=== PATIENT | female | born 1990 ===

== ENCOUNTER 2019-09-20 04:36 | Day surgery (SDC) | payer OTHER ==
[2019-09-19 14:17] VITALS: BMI 18.0
[2019-09-20] MEDS ORDERED: LIDOCAINE HCL/PF 1% SDV 5ML VIAL ONE (07:21)
[2019-09-20] MEDS ORDERED: DEXAMETHASONE SOD PHOSPHATE/PF 10 MG/ML SDV ONE (07:21)
[2019-09-20] MEDS ORDERED: BUPIVACAINE HCL/PF 0.25% (2.5MG/ML) 10 ML VIAL ONE (09:58)
[2019-09-20] MEDS ORDERED: LIDOCAINE HCL 1%, 10 MG/ML (20ML VIAL) ONE (10:23)
[2019-09-20] MEDS ORDERED: LIDOCAINE HCL 1%, 10 MG/ML (50 mL VIAL) INF ONE (10:33)
[2019-09-20] MEDS ORDERED: BUPIVACAINE HCL/PF 0.25% (2.5MG/ML) 10 ML VIAL IJ ONE (10:33)
[2019-09-20] MEDS ORDERED: IOHEXOL 180 MG/1 ML ML IJ ONE (10:34)
[2019-09-20 11:46] VITALS: BP 115/76; PULSE 71; TEMP 98
--- NOTE | 2019-10-02 13:00 | PROC ---
Procedure Note Procedure: Date of Service 09/20/19 Preprocedure Diagnosis: Left Hip Pain Post Procedure Diagnosis: Same Anesthesia: Local Procedure Performed: Left Hip Intrarticular Injection with Local Anasthetic After the risks and benefits were explained, informed consent was obtained. The patient was then taken to the procedure room and positioned supine on the procedure table. Time out was performed. The region overlying the Left hip joint was identified using fluoroscopy. The skin was prepped and draped in the usual sterile fashion. The skin and soft tissues were anesthetized using 1% lidocaine. Using fluoroscopic guidance, a 22 gauge 3.5 inch spinal needle was then introduced to the hip joint at the center of the junction of the femoral neck. Omnipaque 180 confirmed appropriate needle placement. Next 7 cc of .25% bupivacaine was then injected. The patient tolerated the procedure well and there were no complications. The patient was taken to the post procedure recovery area in good condition. Vital signs remained stable before, during, and after the procedure. The patient was given oral and written follow-up instructions. The patient was given a follow up appointment with me in the near future. Jose Amor DO
== END 2019-09-20 11:45 | disposition home or self-care (01) ==
LOC: JASU-SURG 04:36
PROVIDERS: ATTEND Pain Medicine Pain Medicine
PROC: BQ11YZZ Fluoroscopy of Left Hip using Other Contrast (ICD-10-PCS; 2019-09-20)
PROC: 3E0U3BZ Introduction of Anesthetic Agent into Joints, Percutaneous Approach (ICD-10-PCS; principal; 2019-09-20 10:00)
DX: M25.552 Pain in left hip (principal)
CPT/HCPCS: 76000-TC-FY; 84703

== ENCOUNTER 2019-12-06 04:55 | Day surgery (SDC) | payer OTHER ==
--- OUTSIDE RECORDS SUMMARY | 2019-11-19 07:47 | XMS ---
:1990 Author Organization [facility] Care Team Providers Name Role Phone Jose Amor Unavailable Jose Amor Unavailable Re-disclosure Warning The records that you are about to access may contain information from federally- assisted alcohol or drug abuse programs. If such information is present, then the following federally mandated warning applies: This information has been disclosed to you from records protected by federal confidentiality rules (42 CFR part 2). The federal rules prohibit you from making any further disclosure of this information unless further disclosure is expressly permitted by the written consent of the person to whom it pertains or as otherwise permitted by 42 CFR part 2. A general authorization for the release of medical or other information is NOT sufficient for this purpose. The Federal rules restrict any use of the information to criminally investigate or prosecute any alcohol or drug abuse patient.The records that you are about to access may contain highly sensitive health information, the redisclosure of which is protected by Article 27-F of the [facility] Public Health law. If you continue you may haveaccess to information: Regarding HIV / AIDS; Provided by facilities licensed or operated by the [facility] Office of Mental Health; or Provided by the [facility] Office for People With Developmental Disabilities. If such information is present, then the following [facility] mandated warning applies: This information has been disclosed to you from confidential records which are protected by state law. State law prohibits you from making any further disclosure of this information without the specific written consent of the person to whom it pertains, or as otherwise permitted by law. Any unauthorized further disclosure in violation of state law may result in a fine or detention sentence or both. A general authorization for the release of medical or other information is NOT sufficient authorization for further disclosure. Encounters Encounter Providers Location Date Indications Data Source(s ) Attender: Jose 11/14/2019 [facility] ([facility] 12:00:00 AM EDT Medical, ) Office Attender: Jose Amor 11/14/2019 12:00:00 AM EDT [facility] ([facility], ) Office Attender: Jose Amor 11/14/2019 12:00:00 AM EDT MED[facility] ([facility], ) Office Attender: Jose Amor 10/23/2019 12:00:00 AM EDT MED[facility] ([facility], ) Office Attender: Jose Amor 10/23/2019 12:00:00 AM EDT MED[facility] ([facility], ) Office Attender: Jose Amor 10/23/2019 12:00:00 AM EDT MED[facility] ([facility], ) Office Attender: Jose Amor 09/26/2019 12:00:00 AM EDT MED[facility] ([facility], ) Office Attender: Jose Amor 09/26/2019 12:00:00 AM EDT MED[facility] ([facility], ) Office Attender: Jose Amor 09/26/2019 12:00:00 AM EDT MED[facility] ([facility], ) Office Medications Medication Brand Start Product Dose Route Administrative Pharmacy [facility] Indications Reaction Description Data Name Date Form Instructions Instructions Source(s) CREAM 09/24/ CREAM 1 complet CREAM BASE ME DGEN (St BASE:[id number] ed [facility] 12:00: Medical, 00 AM PC) EDT CREAM 09/24/ CREAM 1 complet CREAM BASE ME DGEN (St BASE:[id number] [facility] 12:00: Medical, 00 AM PC) EDT CREAM 09/24/ CREAM 1 complet CREAM BASE ME DGEN (St BASE:[id number] ed [facility] 12:00: Medical, 00 AM PC) EDT Diclofenac DICLOF 09/10/ GEL 1 complet DICLOFE NAC MEDGEN (St Sodium 0.01 ENAC 2019 ed [facility]ICAL [facility] 12:00: Medical, Topical Gel L:8556 00 AM ) DICLOFENAC 33 EDT TOPICAL:[phone] Diclofenac DICLOF 09/10/ GEL 1 complet DICLOFE NAC MEDGEN (St Sodium 0.01 2019 ed TOPICAL [facility] 12:00: Medical, Topical Gel L:8556 00 AM PC) DICLOFENAC 33 EDT TOPICAL:855 633 Diclofenac DICLOF 09/10/ GEL 1 complet DICLOFE NAC MEDGEN (St Sodium 0.01 2019 ed TOPICAL [facility] 12:00: Medical, Topical Gel L:8556 00 AM ) DICLOFENAC 33 EDT TOPICAL:[phone] Insurance Providers Payer name Policy type Policy ID Covered Covered constitution party's Policy P nahun / Coverage constitution party ID relationship to Horner Inf ormation type horner RENE [id number] [id number] [facility] [facility] [id number] SP [id number] HEALTH NON CAP [facility] [id number] SP [id number] HEALTH NON CAP Problems, Conditions, and Diagnoses Code Display Name Description Problem Type Effective Data Dates Source(s) M54.16 Radiculopathy, RADICULOPATHY, Problem 09/11/2019 MEDGEN (St lumbar region LUMBAR REGION 12:00:00 AM [facility], ) M53.3 Sacrococcygeal SACROCOCCYGEAL Problem 09/11/2019 MEDGEN (St disorders, not DISORDERS, NOT 12:00:00 AM [facility] elsewhere [facility] Medical, ) classified CLASSIFIED M25.552 Pain in left hip PAIN IN LEFT HIP Problem 09/11/2019 ME DGEN (St 12:00:00 AM [facility], ) M54.16 Radiculopathy, RADICULOPATHY, Problem 09/11/2019 MEDGEN (St lumbar region LUMBAR REGION 12:00:00 AM [facility], ) M53.3 Sacrococcygeal SACROCOCCYGEAL Problem 09/11/2019 MEDGEN (St disorders, not DISORDERS, NOT 12:00:00 AM [facility] elsewhere [facility] Medical, ) classified CLASSIFIED M25.552 Pain in left hip PAIN IN LEFT HIP Problem 09/11/2019 ME DGEN (St 12:00:00 AM [facility], ) M54.16 Radiculopathy, RADICULOPATHY, Problem 09/11/2019 MEDGEN (St lumbar region LUMBAR REGION 12:00:00 AM [facility], ) M53.3 Sacrococcygeal SACROCOCCYGEAL Problem 09/11/2019 MEDGEN (St disorders, not DISORDERS, NOT 12:00:00 AM [facility] s elsewhere ELSEWHERE [facility], ) classified CLASSIFIED M25.552 Pain in left hip PAIN IN LEFT HIP Problem 09/11/2019 ME DGEN (St 12:00:00 AM [facility], ) Surgeries/Procedures Procedure Description Date Indications Data Source(s) Documentation of current 11/14/2019 MED GEN ([facility]procedure) 12:00:00 AM EDT [facility]in, ) Documentation of current 11/14/2019 MED [facility] ([facility] (procedure) 12:00:00 AM T [facility], ) OFFICE OUTPATIENT VISIT 11/14/2019 MEDG EN ([facility] 15 MINUTES 12:00:00 AM [facility], ) OFFICE OUTPATIENT VISIT 10/23/2019 MEDG EN ([facility] 15 MINUTES 12:00:00 AM [facility], ) OFFICE OUTPATIENT VISIT 10/23/2019 MEDG EN ([facility] 15 MINUTES 12:00:00 AM [facility], ) Documentation of current 09/26/2019 MED GEN ([facility] (procedure) 12:00:00 AM EDT devin, ) Documentation of current 09/26/2019 MED [facility] ([facility] (procedure) 12:00:00 AM EDT devin, ) Documentation of current 09/26/2019 MED [facility] ([facility] (procedure) 12:00:00 AM EDT devin, ) OFFICE OUTPATIENT VISIT 09/26/2019 MEDG EN ([facility] 25 MINUTES 12:00:00 AM [facility], ) Documentation of current 09/26/2019 MED GEN ([facility] (procedure) 12:00:00 AM EDT devin, ) Documentation of current 09/26/2019 MED [facility] ([facility] (procedure) 12:00:00 AM EDT devin, ) OFFICE OUTPATIENT VISIT 09/26/2019 [facility] Documentation of current 09/26/2019 MED GEN ([facility] (procedure) 12:00:00 AM EDT edical, ) OFFICE OUTPATIENT VISIT 09/26/2019 [facility] Documentation of current 09/11/2019 MED [facility] ([facility] (procedure) 12:00:00 AM EDT edical, ) Documentation of current 09/11/2019 MED [facility] ([facility] (procedure) 12:00:00 AM EDT edical, ) Documentation of current 09/11/2019 MED [facility] ([facility] (procedure) 12:00:00 AM EDT edical, ) Documentation of current 09/11/2019 MED [facility] ([facility] (procedure) 12:00:00 AM EDT edical, ) Documentation of current 09/11/2019 [facility]ation of current 09/11/2019 MED GEN ([facility] (procedure) 12:00:00 AM EDT edical, ) Documentation of current 09/11/2019 MED GEN ([facility] (procedure) 12:00:00 AM EDT edical, ) Documentation of current 09/11/2019 MED [facility] ([facility]) [facility] Results ID Date Data Source [id number] 11/07/2019 01:44:00 PM EDT [facility] Name Value Range Interpretation Code Description Data Kiya rce(s) Supporting Document(s ) SARS-COV-2 [facility] RNA RESP Diagnostics QL STEPHANY+PROBE This lab was ordered by [facility] and rep orted by [employer] JOSE. ID Date Data Source [id number] 09/15/2019 09:19:00 AM EDT [facility] Name Value Range Interpretation Description Data Sup porting Code Source(s) Document(s ) SARS [facility] coronavirus 2 RNA This lab was ordered by [facility] and reported by [facility]. Procedure Social History Code Duration Value Status Description Data Source(s ) Smoking 11/14/2019 - No alcohol - completed - No alcohol - No M EDGEN ([facility] 12:00:00 AM EDT No smoking smoking Denies [facility], ) Denies illicit illicit drugs drugs Smoking 11/14/2019 Unknown if ever completed Unknown if ever MEDG EN ([facility] 12:00:00 AM EDT smoked smoked Medical, ) Smoking 10/23/2019 - No alcohol - completed - No alcohol - No M EDGEN ([facility] 12:00:00 AM EDT No smoking smoking Denies [facility], ) Denies illicit illicit drugs drugs Smoking 10/23/2019 Unknown if ever completed Unknown if ever MEDG EN ([facility] 12:00:00 AM EDT smoked smoked Medical, ) Smoking 09/26/2019 - No alcohol - completed - No alcohol - No M EDGEN ([facility] 12:00:00 AM EDT No smoking smoking Denies [facility], ) Denies illicit illicit drugs drugs Smoking 09/26/2019 Unknown if ever completed Unknown if ever MEDG EN ([facility] 12:00:00 AM EDT smoked smoked Medical, ) Smoking 09/11/2019 Unknown if ever completed Unknown if ever MEDG EN ([facility] 12:00:00 AM EDT smoked smoked Medical, ) Vital Signs ID Date Data Source UNK Name Value Range Interpretation Code Description Data Source(s) Heart rate 78 /min 78 /min MEDGEN ([facility]) Respiratory rate 12 /min 12 /min MEDGEN ( [facility]) Inhaled oxygen 100 % 100 % MEDGEN ([facility]) Body mass index 19.1 kg/m2 19.1 kg/m2 MEDGEN (S t (BMI) [Ratio] [facility]) Diastolic blood 60 mm[Hg] 60 mm[Hg] MEDGEN (S t pressure [facility]) Systolic blood 100 mm[Hg] 100 mm[Hg] MEDGEN ([facility]) Body weight 120 lb 120 lb MEDGEN ([facility]) Body height 66.5 in 66.5 in MEDGEN ([facility]) Heart rate 78 /min 78 /min MED[facility] ([facility]) Respiratory rate 12 /min 12 /min MEDGEN ( [facility]) Inhaled oxygen 100 % 100 % MEDGEN ([facility], ) Body mass index 19.1 kg/m2 19.1 kg/m2 MEDGEN (S t (BMI) [Ratio] [facility], ) Diastolic blood 60 mm[Hg] 60 mm[Hg] MEDGEN (S t [facility]) Systolic blood 100 mm[Hg] 100 mm[Hg] MEDGEN ([facility]) Body weight 120 lb 120 lb MEDGEN ([facility]) Body height 66.5 in 66.5 in MEDGEN ([facility]) Heart rate 78 /min 78 /min MEDGEN ([facility]) Respiratory rate 12 /min 12 /min MEDGEN ( [facility]) Inhaled oxygen 100 % 100 % MEDGEN ([facility], ) Body mass index 19.1 kg/m2 19.1 kg/m2 MEDGEN (S t (BMI) [Ratio] [facility], ) Diastolic blood 60 mm[Hg] 60 mm[Hg] MEDGEN (S [facility]) Systolic blood 100 mm[Hg] 100 mm[Hg] MEDGEN ([facility]) Body weight 120 lb 120 lb MEDGEN ([facility]) Body height 66.5 in 66.5 in MEDGEN ([facility]) Heart rate 78 /min 78 /min MEDGEN ([facility]) Respiratory rate 12 /min 12 /min MEDGEN ( [facility]) Inhaled oxygen 100 % 100 % MEDGEN ([facility], ) Body mass index 19.6 kg/m2 19.6 kg/m2 MEDGEN (S t (BMI) [Ratio] [facility], ) Diastolic blood 60 mm[Hg] 60 mm[Hg] MEDGEN (S t pressure [facility]) Systolic blood 100 mm[Hg] 100 mm[Hg] MEDGEN ([facility]) Body weight 123 lb 123 lb MEDGEN ([facility]) Body height 66.5 in 66.5 in MEDGEN ([facility]) Heart rate 78 /min 78 /min MEDGEN ([facility]) Respiratory rate 12 /min 12 /min MEDGEN ( [facility]) Inhaled oxygen 100 % 100 % MEDGEN ([facility]) Body mass index 19.6 kg/m2 19.6 kg/m2 MEDGEN (S t (BMI) [Ratio] [facility], ) Diastolic blood 60 mm[Hg] 60 mm[Hg] MEDGEN (S t [facility]) Systolic blood 100 mm[Hg] 100 mm[Hg] MEDGEN ([facility]) Body weight 123 lb 123 lb MEDGEN ([facility]) Body height 66.5 in 66.5 in MEDGEN ([facility]) Heart rate 78 /min 78 /min MEDGEN ([facility]) Respiratory rate 12 /min 12 /min MEDGEN ( [facility]) Inhaled oxygen 100 % 100 % MEDGEN ([facility]) Body mass index 19.6 kg/m2 19.6 kg/m2 MEDGEN (S t (BMI) [Ratio] [facility], ) Diastolic blood 60 mm[Hg] 60 mm[Hg] MEDGEN (S t pressure [facility]) Systolic blood 100 mm[Hg] 100 mm[Hg] MEDGEN ([facility]) Body weight 123 lb 123 lb MEDGEN ([facility]) Body height 66.5 in 66.5 in MEDGEN ([facility]) Body mass index 19.6 kg/m2 19.6 kg/m2 MEDGEN (S t (BMI) [Ratio] [facility]) Diastolic blood 64 mm[Hg] 64 mm[Hg] MEDGEN (S [facility]) Systolic blood 108 mm[Hg] 108 mm[Hg] MEDGEN ([facility]) Body weight 123 lb 123 lb MEDGEN ([facility]) Body height 66.5 in 66.5 in MEDGEN ([facility]) Body mass index 19.6 kg/m2 19.6 kg/m2 MEDGEN (S t (BMI) [Ratio] [facility]) Diastolic blood 64 mm[Hg] 64 mm[Hg] MEDGEN (S t pressure [facility]) Systolic blood 108 mm[Hg] 108 mm[Hg] MEDGEN ([facility]) Body [facility] 123 lb [facility] Body height 66.5 in 66.5 in [facility] ([facility]) Body mass index 19.6 kg/m2 19.6 kg/m2 MEDGEN (S t (BMI) [Ratio] [facility]) Diastolic blood 64 mm[Hg] 64 mm[Hg] [facility]S t [facility]) Systolic blood 108 mm[Hg] 108 mm[Hg] [facility] Body weight 123 lb 123 lb [facility] Body height 66.5 in 66.5 in [facility] ([facility]) Body mass index 19.6 kg/m2 19.6 kg/m2 MEDGEN (S t (BMI) [Ratio] [facility]) Diastolic blood 64 mm[Hg] 64 mm[Hg] [facility]S [facility]) Systolic blood 108 mm[Hg] 108 mm[Hg] [facility] Body weight 123 lb 123 lb [facility] Body height 66.5 in 66.5 in [facility] ([facility])
[2019-11-28 13:22] VITALS: BMI 18.6
--- NOTE | 2019-12-05 23:31 | PROC ---
Procedure Note Procedure: Pre procedure Diagnosis: Sacroiliac Joint Dysfunction Post Procedure Diagnosis: same Anesthesia: local Procedure Performed: Left Sacroiliac Joint Injection Under Fluoroscopic Guidance After the risks and benefits were explained, informed consent was obtained. The patient was then taken to the procedure room and positioned prone on the procedure table. Time out was performed. The region overlying the Left sacroiliac joint was identified using fluoroscopy. The skin was prepped and draped in the usual sterile fashion. The skin and soft tissues were anesthetized using 2% lidocaine. Using fluoroscopic guidance, a 22 gauge 3.5 inch spinal needle was then introduced to the inferior aspect of the posterior Right sacroiliac joint. Omnipaque 180 confirmed appropriate needle placement. 1 cc .5% bupivacaine and 1 cc Kenalog was then injected. The patient tolerated the procedure well and there were no complications. The patient was taken to the post procedure recovery area in good condition. Vital signs remained stable before, during, and after the procedure. The patient was given oral and written follow-up instructions. The patient was given a follow up appointment with me in the near future. Jose Amor DO
--- OUTSIDE RECORDS SUMMARY | 2019-12-06 04:59 | XMS ---
:1990 Author Organization [facility] Care Team Providers Name Role Phone [...] is protected by Article 27-F of the [facility] Public Health law. If you continue you may haveaccess to information: Regarding HIV / AIDS; Provided by facilities licensed or operated by the [facility] Office of Mental Health; or Provided by the [facility] Office for People With Developmental Disabilities. If such information is present, then the following [facility] mandated warning applies: This information has been [...] law may result in a fine or longterm sentence or both. A general authorization for the release of medical or other information is NOT sufficient authorization for further disclosure. Encounters Encounter Providers Location Date Indications Data Source(s ) Attender: Jose 11/14/2019 MEDGEN ([facility] 12:00:00 AM EDT Medical, ) Office Attender: Jose Amor 11/14/2019 12:00:00 AM EDT MEDGEN ([place] [facility], ) Office Attender: Jose Amor 11/14/2019 12:00:00 AM EDT MEDGEN ([place] [facility], ) Office Attender: Jose Amor 10/23/2019 12:00:00 AM EDT MEDGEN ([place], ) Office Attender: Jose Amor 10/23/2019 12:00:00 AM EDT MEDGEN ([place], ) Office Attender: Jose Amor 10/23/2019 12:00:00 AM EDT MEDGEN ([place], ) Office Attender: Jose Amor 09/26/2019 12:00:00 AM EDT MEDGEN ([place], ) Office Attender: Jose Amor 09/26/2019 12:00:00 AM EDT MEDGEN ([place], ) Office Attender: Jose Amor 09/26/2019 12:00:00 AM EDT MEDGEN ([facility], ) Office Medications Medication Brand Start Product Dose Route Administrative Pharmacy [facility] Indications Reaction Description Data Name Date Form Instructions Instructions Source(s) CREAM 09/24/ CREAM 1 complet CREAM BASE ME DGEN (St BASE:[id number] [facility] 12:00: Medical, 00 AM PC) EDT CREAM 09/24/ CREAM 1 complet CREAM BASE ME DGEN ( BASE:[id number] [facility] 12:00: Medical, 00 AM PC) EDT CREAM 09/24/ CREAM 1 complet CREAM BASE ME DGEN (St BASE:[id number] [facility] 12:00: Medical, 00 AM PC) EDT Diclofenac [...] AM PC) DICLOFENAC 33 EDT TOPICAL:[id number] Insurance Providers Payer name Policy type Policy ID Covered Covered green party's Policy P nahun / Coverage green party ID relationship to Horner Inf ormation type horner RENE [id number] SP [id number] HEALTH NON CAP RENE [id number] SP [id number] HEALTH NON CAP RENE [id number] 1 [id number] [facility] Problems, Conditions, and Diagnoses Code Display Name Description Problem Type Effective Data Dates Source(s) M54.16 Radiculopathy, RADICULOPATHY, Problem 09/11/2019 MEDGEN (St lumbar region LUMBAR REGION 12:00:00 AM [facility], ) M53.3 Sacrococcygeal SACROCOCCYGEAL Problem 09/11/2019 MEDGEN (St disorders, not DISORDERS, NOT 12:00:00 AM [facility] elsewhere [facility] Medical, ) classified CLASSIFIED M25.552 Pain in left hip PAIN IN LEFT HIP Problem 09/11/2019 ME DGEN (St 12:00:00 AM [facility], ) M54.16 Radiculopathy, RADICULOPATHY, Problem 09/11/2019 MEDGEN (St lumbar region LUMBAR REGION 12:00:00 AM [facility], ) M53.3 Sacrococcygeal SACROCOCCYGEAL Problem 09/11/2019 MEDGEN (St disorders, not DISORDERS, NOT 12:00:00 AM [facility] s elsewhere [facility] Medical, ) classified CLASSIFIED M25.552 Pain in left hip PAIN IN LEFT HIP Problem 09/11/2019 ME DGEN (St 12:00:00 AM [facility], ) M54.16 Radiculopathy, RADICULOPATHY, Problem 09/11/2019 MEDGEN (St lumbar region LUMBAR REGION 12:00:00 AM [facility], ) M53.3 Sacrococcygeal SACROCOCCYGEAL Problem 09/11/2019 MEDGEN (St disorders, not DISORDERS, NOT 12:00:00 AM [facility]' s elsewhere ELSEWHERE [facility], ) classified CLASSIFIED M25.552 Pain in left hip PAIN IN LEFT HIP Problem 09/11/2019 ME DGEN (St 12:00:00 AM [facility], ) Surgeries/Procedures Procedure Description Date Indications Data Source(s) Documentation of current 11/14/2019 MED GEN ([facility] (procedure) 12:00:00 AM T [facility], ) Documentation of current 11/14/2019 MED GEN ([facility] medications (procedure) 12:00:00 AM EDT [facility], ) OFFICE OUTPATIENT VISIT 11/14/2019 MEDG EN ([facility] 15 MINUTES 12:00:00 AM [facility], ) OFFICE OUTPATIENT VISIT 10/23/2019 MEDG EN ([facility] 15 MINUTES 12:00:00 AM [facility], ) OFFICE OUTPATIENT VISIT 10/23/2019 MEDG EN ([facility] 15 MINUTES 12:00:00 AM [facility], ) Documentation of current 09/26/2019 MED GEN ([facility] medications (procedure) 12:00:00 AM EDT [facility], ) Documentation of current 09/26/2019 MED GEN ([facility] medications (procedure) 12:00:00 AM EDT [facility], ) Documentation of current 09/26/2019 MED GEN ([facility] (procedure) 12:00:00 [facility], [facility] OFFICE OUTPATIENT VISIT 09/26/2019 MEDG EN ([facility] 25 MINUTES 12:00:00 AM [facility], ) Documentation of current 09/26/2019 MED GEN ([facility] medications (procedure) 12:00:00 AM EDT devin, ) Documentation of current 09/26/2019 MED GEN ([facility] medications (procedure) 12:00:00 AM EDT edical, ) OFFICE OUTPATIENT VISIT 09/26/2019 MEDG EN ([facility] 25 MINUTES 12:00:00 AM ED Medical, ) Documentation of current 09/26/2019 MED GEN ([facility] medications (procedure) 12:00:00 AM EDT edical, ) OFFICE OUTPATIENT VISIT 09/26/2019 MEDG EN ([facility] 25 MINUTES 12:00:00 AM EDT Medical, ) Documentation of current 09/11/2019 MED GEN [...] GEN ([facility] Results ID Date Data Source [id number] 11/24/2019 12:54:00 PM EDT [facility] Name Value Range Interpretation Description Data Sup porting Code Source(s) Document(s ) SARS [facility] coronavirus 2 RNA This lab was ordered by [facility] and reported by [facility]. ID Date Data Source [id number] 11/07/2019 01:44:00 PM EDT [facility] Name Value Range Interpretation Code Description Data Kiya rce(s) Supporting Document(s ) SARS-COV-2 [facility] RNA [facility]P Diagnostics QL STEPHANY+PROBE This lab was ordered by [id number] and rep orted by [employer] [facility]SE. ID Date Data Source [id number] 09/15/2019 09:19:00 AM EDT [facility] Name Value Range Interpretation Description Data Sup porting Code Source(s) Document(s ) SARS [facility] coronavirus 2 RNA This lab was ordered by [facility] and reported by [facility]. Procedure Social History Code Duration Value Status Description Data Source(s ) Smoking 11/14/2019 - No alcohol - completed - No alcohol - No M EDGEN ([facility] 12:00:00 AM EDT No smoking smoking Denies Medi josette, PC) Denies illicit illicit drugs drugs Smoking 11/14/2019 Unknown if ever completed Unknown if ever MEDG EN ([facility] 12:00:00 AM EDT smoked smoked Medical, PC) Smoking 10/23/2019 - No alcohol - completed - No alcohol - No M EDGEN ([facility] 12:00:00 AM EDT No smoking smoking Denies Medi josette, PC) Denies illicit illicit drugs drugs Smoking 10/23/2019 Unknown if ever completed Unknown if ever MEDG EN ([facility] 12:00:00 AM EDT smoked smoked Medical, PC) Smoking 09/26/2019 - No alcohol - completed - No alcohol - No M EDGEN ([facility] 12:00:00 AM EDT No smoking smoking Denies Medi josette, PC) Denies illicit illicit drugs drugs Smoking 09/26/2019 Unknown if ever completed Unknown if ever MEDG EN ([facility] 12:00:00 AM EDT smoked smoked Medical, PC) Smoking 09/11/2019 Unknown if ever completed Unknown if ever MEDG EN ([facility] 12:00:00 AM EDT smoked smoked Medical, PC) Vital Signs ID Date Data Source UNK Name Value Range Interpretation Code Description Data Source(s) Heart rate 78 /min 78 /min MEDGEN ([facility] , ) Respiratory rate 12 /min 12 /min MEDGEN ( [facility] , ) Inhaled oxygen 100 % 100 % MEDGEN ([facility], ) Body mass index 19.1 kg/m2 19.1 kg/m2 MEDGEN (S t (BMI) [Ratio] [facility]'s [facility], ) Diastolic blood 60 mm[Hg] 60 mm[Hg] MEDGEN (S t pressure [facility]) Systolic blood 100 mm[Hg] 100 mm[Hg] MEDGEN ([facility]) Body weight 120 lb 120 lb MEDGEN ([facility]) Body height 66.5 in 66.5 in MEDGEN ([facility]) Heart rate 78 /min 78 /min MEDGEN ([facility]) Respiratory rate 12 /min 12 /min MEDGEN ( [facility]) Inhaled oxygen 100 % 100 % MEDGEN ([facility], ) Body mass index 19.1 kg/m2 19.1 kg/m2 MEDGEN (S t (BMI) [Ratio] [facility], ) Diastolic blood 60 mm[Hg] 60 mm[Hg] MEDGEN (S t pressure [facility] , ) Systolic blood 100 mm[Hg] 100 mm[Hg] MEDGEN ([facility]) Body weight 120 lb 120 lb MEDGEN ([facility]) Body height 66.5 in 66.5 in MEDGEN ([facility]) Heart rate 78 /min 78 /min MEDGEN ([facility]) Respiratory rate 12 /min 12 /min MEDGEN ( [facility]) Inhaled oxygen 100 % 100 % MEDGEN ([facility]) Body mass index 19.1 kg/m2 19.1 kg/m2 MEDGEN (S t (BMI) [Ratio] [facility], ) Diastolic blood 60 mm[Hg] 60 mm[Hg] MEDGEN (S t pressure [facility]) Systolic blood 100 mm[Hg] 100 mm[Hg] MEDGEN ([facility]) Body weight 120 lb 120 lb MEDGEN ([facility]) Body height 66.5 in 66.5 in MEDGEN ([facility]) Heart rate 78 /min 78 /min MEDGEN ([facility]) Respiratory rate 12 /min 12 /min MEDGEN ( [facility]) Inhaled oxygen 100 % 100 % MEDGEN ([facility], ) Body mass index 19.6 kg/m2 19.6 kg/m2 MEDGEN (S t (BMI) [Ratio] [facility], ) Diastolic blood 60 mm[Hg] 60 mm[Hg] MEDGEN (S t pressure [facility]) Systolic blood 100 mm[Hg] 100 mm[Hg] MEDGEN ([facility]) Body weight 123 lb 123 lb MEDGEN ([facility]) Body height 66.5 in 66.5 in MEDGEN ([facility]) Heart rate 78 /min 78 /min MEDGEN ([facility]) Respiratory rate 12 /min 12 /min MEDGEN ( [facility]) Inhaled oxygen 100 % 100 % MEDGEN ([facility]) Body mass index 19.6 kg/m2 19.6 kg/m2 MEDGEN (S t (BMI) [Ratio] [facility], ) Diastolic blood 60 mm[Hg] 60 mm[Hg] MEDGEN (S t [facility]) Systolic blood 100 mm[Hg] 100 mm[Hg] MEDGEN ([facility]) Body weight 123 lb 123 lb MEDGEN ([facility]) Body height 66.5 in 66.5 in MEDGEN ([facility]) Heart rate 78 /min 78 /min MEDGEN ([facility]) Respiratory rate 12 /min 12 /min MEDGEN ( [facility]) Inhaled oxygen 100 % 100 % MEDGEN ([facility]) Body mass index 19.6 kg/m2 19.6 kg/m2 MEDGEN (S t (BMI) [Ratio] [facility], ) Diastolic blood 60 mm[Hg] 60 mm[Hg] MEDGEN (S t [facility]) Systolic blood 100 mm[Hg] 100 mm[Hg] MEDGEN ([facility]) Body weight 123 lb 123 lb MEDGEN ([facility]) Body height 66.5 in 66.5 in MEDGEN ([facility]) Body mass index 19.6 kg/m2 19.6 kg/m2 MEDGEN (S t (BMI) [Ratio] [facility], ) Diastolic blood 64 mm[Hg] 64 mm[Hg] MEDGEN (S t pressure [facility]) Systolic blood 108 mm[Hg] 108 mm[Hg] MEDGEN ([facility]) Body weight 123 lb [facility] Body height 66.5 in 66.5 in [facility] ([facility]) Body mass index 19.6 kg/m2 19.6 kg/m2 MEDGEN (S t (BMI) [Ratio] [facility], ) Diastolic blood 64 mm[Hg] 64 mm[Hg] MEDGEN (S t pressure [facility]) Systolic blood 108 mm[Hg] 108 mm[Hg] MEDGEN ([facility]) Body weight 123 lb 123 lb [facility] Body height 66.5 in 66.5 in [facility] ([facility]) Body mass index 19.6 kg/m2 19.6 kg/m2 MEDGEN (S t (BMI) [Ratio] [facility], ) Diastolic blood 64 mm[Hg] 64 mm[Hg] MEDGEN (S t pressure [facility]) Systolic blood 108 mm[Hg] 108 mm[Hg] MEDGEN ([facility]) Body weight 123 lb 123 lb MEDGEN ([facility]) Body height 66.5 in 66.5 in [facility] ([facility]) Body mass index 19.6 kg/m2 19.6 kg/m2 MEDGEN (S t (BMI) [Ratio] [facility], ) Diastolic blood 64 mm[Hg] 64 mm[Hg] MEDGEN (S t pressure [facility]) Systolic blood 108 mm[Hg] 108 mm[Hg] MEDGEN ([facility]) Body weight 123 lb 123 lb [facility] Body height 66.5 in 66.5 in [facility] ([facility])
[2019-12-06 12:52] VITALS: TEMP 98
[2019-12-06] MEDS ORDERED: IOHEXOL 180 MG/1 ML ML IJ ONE (14:32)
[2019-12-06] MEDS ORDERED: BUPIVACAINE HCL/PF 0.5% (5 MG/ML) 30 ML VIAL IJ ONE (14:32)
[2019-12-06] MEDS ORDERED: LIDOCAINE 1% P/F 10 MG/ML VIAL INF ONE (14:32)
[2019-12-06] MEDS ORDERED: TRIAMCINOLONE ACETONIDE 40 MG/ML 10 ML VIAL NR ONE (14:32)
[2019-12-06] MEDS ORDERED: BUPIVACAINE HCL 50 ML ONE (14:51)
[2019-12-06] MEDS ORDERED: LIDOCAINE HCL 1%, 10 MG/ML (20ML VIAL) ONE (14:51)
[2019-12-06 15:02] VITALS: BP 97/57; PULSE 76
== END 2019-12-06 15:10 | disposition home or self-care (01) ==
LOC: JASU-SURG 04:55
PROVIDERS: ATTEND Pain Medicine Pain Medicine
PROC: 3E0U3BZ Introduction of Anesthetic Agent into Joints, Percutaneous Approach (ICD-10-PCS; 2019-12-06)
PROC: 3E0U33Z Introduction of Anti-inflammatory into Joints, Percutaneous Approach (ICD-10-PCS; principal; 2019-12-06 14:00)
DX: M53.3 Sacrococcygeal disorders, not elsewhere classified (principal); M54.5 Low back pain
CPT/HCPCS: 76000-TC-FY; 84703